=== PATIENT | male | born 1945 | race Caucasian/White ===

== ENCOUNTER → 2018-05-28 | Outpatient (CLI) | payer MEDICARE, BC ==
--- NOTE | 2018-05-28 18:52 | CONS ---
CONSULTATION REASON FOR CONSULTATION: Sleep apnea. Alejandro is 72, coming in for sleep apnea evaluation. He apparently was diagnosed having obstructive sleep apnea more than 20 years ago through a sleep center in [place]. He never went back and he did not receive any treatment. At that time he used to weight 210 pounds. In the year 1999 he was diagnosed having laryngeal cancer and received chemoradiation therapy. At one point he also had osteomyelitis of the collarbone that was surgically resected. In 2009 he suffered a CVA that left no residual deficits. Note that his weight was down to 143. He recently was seen by Oncology at [facility] and he was started on Megace, which stimulate his appetite, and he is currently up to 172 pounds. He is becoming forgetful, and on and off he is snoring, and his has noted that he may be stopping breathing. He has undergone dental work where he has caps inserted. He does not have a full ability to open up his mouth because of previous radiation therapy. He does have an overbite and crowding in the posterior pharynx. He goes to bed around 10:30 p.m., wakes up between 6 and 7 a.m. in the morning. During work hours he is fine; however, after he comes home he can fall asleep easily, especially after dinner. His has noted that he has become excessively more forgetful. For that reason, the patient was referred to me for further evaluation. PAST MEDICAL HISTORY: 1. Remote history of obstructive sleep apnea. 2. Laryngeal cancer in 1999, with chemoradiation therapy. 3. History of osteolysis, treated. 4. Cerebrovascular accident in 2009. 5. Hypertension. 6. Hyperlipidemia. 7. Hypothyroidism. 8. Acid reflux. SURGICAL HISTORY: 1. Clavicle bone resection. 2. Knee surgery bilaterally. 3. Carotid artery stenting. DRUG ALLERGIES: NOT KNOWN. OUTPATIENT MEDICATION LIST: 1. Omeprazole 20 daily. 2. Zetia/simvastatin 80 one tablet a day. 3. Pilocarpine 5 mg p.o. daily. 4. Synthroid 75 mcg p.o. daily. 5. Norvasc 5 mg p.o. daily. 6. Hydralazine 50 mg twice a day. 7. Megace 400 mg p.o. daily. 8. Centrum Silver. 9. Flaxseed oil. 10.Fish oil. 11.Glucosamine chondroitin. 12.Coenzyme Q. SOCIAL HISTORY: Nonsmoker. No history of alcoholism. No history of IV drugs. FAMILY HISTORY: Negative for sleep apnea. REVIEW OF SYSTEMS: Twelve-point review of systems was done. Positive findings are mentioned above in the history of present illness. He has no insomnia, no waking up choking or gasping for air. No grinding of the teeth. No sleepwalking. No anxiety or panic attacks. No depression. No palpitation at nighttime. No heartburn at nighttime. No claustrophobia. No anxiety. Recent history of weight gain. PHYSICAL EXAMINATION: BP is 153/79, pulse 76, respirations 16, temperature 97.9, saturation 97% on room air. Weight is 172, height 5 feet 11 inches, BMI 23.9. GENERAL APPEARANCE: Calm, comfortable. Head is atraumatic, normocephalic. Neck is short, supple. There is an overbite with malalignment of the upper and lower jaw. There is crowding in the posterior pharynx with Mallampati class 4. LUNGS: Clear to auscultation. HEART: Sounds are regular rate, rhythm. Normal S1, S2. No S3. No murmurs. ABDOMEN: Soft, nontender. No organomegaly. EXTREMITIES: No edema. No cyanosis or clubbing. NEUROLOGIC: Alert and oriented x3. No focal neurological deficits. PSYCHIATRIC: Negative for anxiety or depression. SKIN: Negative for any wounds or ulceration. IMPRESSION: 1. Obstructive sleep apnea suspected, currently under investigation. 2. Obesity with interval weight loss. Current BMI 23.9. 3. Remote history of sleep apnea diagnosis done more than 20 years ago. The patient did not follow or receive any treatment back then. 4. Excessive fatigue with some degree of sleepiness. [place] score is 4. The patient has become also forgetful. Rule out secondary to obstructive sleep apnea. Rule out underlying primary neurologic disorder/dementia. 5. Cerebrovascular accident without any residual deficits in 2010. 6. Hyperlipidemia. 7. Hypothyroidism. 8. Hypertension. 9. Acid reflux. PLAN: Will proceed with a home sleep study, looking for any significant obstructive sleep apnea. This will be a screening tool to see if there is any sleep breathing disorder and will treat accordingly. MMODL / IJN: [id number] /
== END | disposition home or self-care (01) ==
LOC: SLEEP 13:42
PROVIDERS: ATTEND Internal Medicine Critical Care Medicine
DX: R53.83 Other fatigue (principal); R40.0 Somnolence; R06.83 Snoring; E66.9 Obesity, unspecified; E78.5 Hyperlipidemia, unspecified; E03.9 Hypothyroidism, unspecified; I10 Essential (primary) hypertension; K21.9 Gastro-esophageal reflux disease without esophagitis; Z85.21 Personal history of malignant neoplasm of larynx; Z68.23 Body mass index [BMI] 23.0-23.9, adult; Z86.73 Personal history of transient ischemic attack (TIA), and cerebral infarction without residual deficits; Z92.3 Personal history of irradiation; Z98.890 Other specified postprocedural states; Z79.1 Long term (current) use of non-steroidal anti-inflammatories (NSAID); Z79.899 Other long term (current) drug therapy
CPT/HCPCS: 99211

== ENCOUNTER → 2019-02-04 | Outpatient (CLI) | payer MEDICARE, BC ==
--- NOTE | 2019-02-04 16:36 | PN ---
PROGRESS NOTE 73-year-old male patient coming in for a followup. The patient is having issues with memory and dementia and is under the care of Dr. Hermosillo. He is currently on Aricept 10 mg p.o. daily. The is interested in pursuing CPAP treatments. I discussed with the patient and his the nature of the disease which is mild in severity with an AHI of 11.9, worse in the supine body position. The patient is feeling fatigued and he is having some degree of sleepiness and according to this has gotten somewhat worse since his last evaluation in my office back in May of 2018. He has history of CVA and hyperlipidemia, hypothyroidism, hypertension as other comorbidities. He has also lost weight and he is currently on Megace as an appetite stimulant. His [place] score is 11. REVIEW OF SYSTEMS: A 14-point review of system was done. Of significance is difficulty with memory and concentration and chronic tiredness and fatigue and sleepiness as mentioned earlier. He is having no difficulty with gait movements. No falls. At times has trouble remembering words. Cognitive functions have also been impaired. No nighttime chest pain, shortness of breath. Heart burn. No swelling in the lower extremities. His appetite is low as the patient has undergone radiation therapy to his neck and his taste has been suboptimal due to previous radiation to the neck. He is unable to open his mouth in full and he has had a slight overbite and crowding of the posterior pharynx. EXAM: VITAL SIGNS: BP is 133/73, pulse is 72, respirations 16, temperature 97.5, saturation 99% on room air. Height is 5 feet, 10 inches, weight is 169, [place] score is 11. BMI is 23.9. GENERAL APPEARANCE is calm and comfortable. HEENT: Head is atraumatic, normocephalic. NECK: Supple. There is no JVD. No goiter or neck masses. Scar from previous surgery. The patient has limited range of motion of the jaws and he is unable to fully open his mouth due to scarring. LUNGS: Clear to auscultation. HEART: Sounds regular rate and rhythm. Normal S1, S2. No S3. No murmurs. ABDOMEN: Soft, nontender. No organomegaly. EXTREMITIES: No edema. No cyanosis or clubbing. NEUROLOGIC: The patient has underlying dementia. No focal neurological deficits at this point in time. PSYCHIATRIC: Negative for anxiety or depression. SKIN is negative for any wounds or ulceration. IMPRESSION: 1. Symptomatic obstructive sleep apnea AHI of 11.9, worse in the supine body position. 2. Worsening fatigue and sleepiness. 3. Diminished appetite and the patient has a BMI of 23.9, and he is currently on Megace for weight loss. 4. History of cerebrovascular accident in 2009. 5. Hyperlipidemia. 6. Hypothyroidism. 7. Hypertension. 8. Acid reflux. PLAN: We had a lengthy discussion with the patient. I doubt his cognitive functions and memory would improve with CPAP therapy. Some of the other symptoms may improve which include tiredness and fatigue and sleepiness. He is ability to concentrate might also improve. I am going to give him in an APAP unit. Minimum pressure of 5, maximum pressure of 20. I am going to give him a DreamWear under the nose small size to try. The patient will come and see me back in 30 to 90 days to assess clinical response and compliance and decide if this is something that he we will like to continue in the future. We will continue to follow. MMODL / IJN: [id number] /
== END ==
LOC: SLEEP 14:35
PROVIDERS: ATTEND Internal Medicine Critical Care Medicine
DX: G47.33 Obstructive sleep apnea (adult) (pediatric) (principal); E78.5 Hyperlipidemia, unspecified; E03.9 Hypothyroidism, unspecified; I10 Essential (primary) hypertension; K21.9 Gastro-esophageal reflux disease without esophagitis; R63.4 Abnormal weight loss; R63.0 Anorexia; Z68.23 Body mass index [BMI] 23.0-23.9, adult; Z86.73 Personal history of transient ischemic attack (TIA), and cerebral infarction without residual deficits; Z79.899 Other long term (current) drug therapy

== ENCOUNTER → 2019-07-22 | Outpatient (CLI) | payer MEDICARE, BC ==
--- NOTE | 2019-07-22 18:59 | PN ---
PROGRESS NOTE This patient was diagnosed having severe obstructive sleep apnea with an AHI of 43 and he is coming in for a compliancy check. Note that the patient was diagnosed having dementia. He was having increased hypersomnia and sleepiness during the day. He was given an APAP machine which is set at a minimum pressure of 5 and a maximum pressure of 20. Based on the compliance data, the patient has been averaging more than 4 hours of CPAP use. His CPAP use for more than 4 hours is 77%. His CPAP use for less than 4 hours is 13%. He is averaging 5 hours and 28 minutes of CPAP use per night. Based on the compliance data, the patient's AHI is still elevated at 21.5. He is having excessive amount of leaks which are mainly oral leaks, as the patient is a mouth breather. He is feeling better. He is less somnolent and sleepy during the day. He would like to make further adjustments on his machine to make the treatment more successful. REVIEW OF SYSTEMS: Fourteen-point review of systems was done. Positive findings were all mentioned above in the history of present illness. In general, the patient is feeling less sleepy and drowsy while on the CPAP unit. PHYSICAL EXAMINATION: VITAL SIGNS: BP is 153/91, pulse 67, respirations 14, temperature 97.0. Weight is 169. Saturation 98% on room air. [place] score is 8. GENERAL APPEARANCE: Calm, comfortable. HEAD: Atraumatic, normocephalic. NECK: Supple. No JVD. No goiter or neck masses. LUNGS: Diminished; otherwise clear. HEART: Heart sounds are regular rate and rhythm. Normal S1, S2. No S3, S4. No murmurs. ABDOMEN: Soft, nontender. No organomegaly. EXTREMITIES: No edema. No cyanosis or clubbing. IMPRESSION: 1. Severe symptomatic obstructive sleep apnea; apnea/hypopnea index of 43; currently on APAP. 2. Chronic fatigue and tiredness and sleepiness, improving. 3. Dementia. 4. History of cerebrovascular accident. 5. Hyperlipidemia. 6. Hypothyroidism. 7. Hypertension. 8. Acid reflux. PLAN: 1. Continue APAP at the same pressure settings. 2. The patient is a mouth breather, and I think he will do much better with a full- face mask. Will offer him a DreamWear full-face mask under the nose. Alternatively he can use the [id number] DreamWear with a chin strap. Will give this trial and will see him back in 30 to 90 days for reevaluation. MMODL / IJN: [id number] /
== END ==
LOC: SLEEP 16:30
PROVIDERS: ATTEND Internal Medicine Critical Care Medicine
DX: G47.33 Obstructive sleep apnea (adult) (pediatric) (principal); R53.82 Chronic fatigue, unspecified; F03.90 Unspecified dementia, unspecified severity, without behavioral disturbance, psychotic disturbance, mood disturbance, and anxiety; E78.5 Hyperlipidemia, unspecified; E03.9 Hypothyroidism, unspecified; I10 Essential (primary) hypertension; K21.9 Gastro-esophageal reflux disease without esophagitis; Z99.89 Dependence on other enabling machines and devices; Z86.73 Personal history of transient ischemic attack (TIA), and cerebral infarction without residual deficits

== ENCOUNTER → 2019-08-23 | Outpatient (CLI) | payer MEDICARE, BC ==
--- NOTE | 2019-08-25 04:11 | CT ---
EXAMINATION TYPE: CT brain wo con DATE OF EXAM: 08/23/2019 COMPARISON: 01/20/2013 HISTORY: Dementia CT DLP: [id number] mGycm Automated exposure control for dose reduction was used. FINDINGS: There is extensive patchy hypodensity in the periventricular white matter. There is old right parieta l 4 cm x 3 cm cortical infarct. There is no mass effect nor midline shift. There is no sign of intrac ranial hemorrhage. The calvarium is intact. There is cerebellar atrophy. IMPRESSION: OLD RIGHT PARIETAL CORTICAL INFARCT THAT IS PROGRESSED COMPARED TO OLD CT SCAN. EXTENSIVE CHRONIC SMA LL VESSEL ISCHEMIA THAT HAS PROGRESSED COMPARED TO OLD EXAM. NO HEMORRHAGE.
== END | disposition home or self-care (01) ==
LOC: RADCTMAIN 13:56
PROVIDERS: ATTEND Psychiatry & Neurology Neurology
DX: G31.84 Mild cognitive impairment of uncertain or unknown etiology (principal); G91.2 (Idiopathic) normal pressure hydrocephalus; Z86.73 Personal history of transient ischemic attack (TIA), and cerebral infarction without residual deficits
CPT/HCPCS: 70450